=== PATIENT | female | born 1975 | race Caucasian/White ===

== ENCOUNTER 2019-10-17 11:15 | Inpatient (IN) | payer OTHER, SELFPAY ==
[2019-10-17] VITALS (14 sets, daily range): BP systolic 125–177; BP diastolic 60–96; PULSE 75–95; RESP 16–18; TEMP 36.5–37.1; O2SAT 98–100; BMI 41.9; BMI 41.5
--- NOTE | 2019-10-17 11:39 | ED.VISSUMM ---
- ER Visit Summary Date of Service: 10/17/19 Chief Complaint: Reportedly anemic requiring blood transfusion History of Present Illness: The patient is a 44 F with no past medical history. Patient states that she has had a heavy period recently. She had a blood count checked due to fatigue and had a hemoglobin of 6 and was told to come in to be transfused. She denies prior transfusions or history of anemia. She denies any melena. No hematuria. No bruising. She is on no blood thinners. Physical Examination: Middle-aged female no acute distress vital signs are stable afebrile. Initial blood pressure is 145/73. H EENT exam unremarkable. Mildly pale. Neck nontender. No lymphadenopathy. Lungs clear to auscultation. Heart regular rhythm no murmur. Abdomen soft nontender. Normal bowel sounds no peritoneal signs. Extremities moves all 4. Calves nontender without edema or cords. No bruising. Neurologically she is awake and alert with no focal motor deficits. Skin unremarkable other than pallor. Test Results: CBC shows hemoglobin of 5.9 hematocrit 22 consistent with her outpatient labs yesterday her hemoglobin was 6.0. Electrolytes normal normal creatinine and gap. Type and screen was changed over to a type and cross for 4 units. She will be transfused 2. I have the hospitalist on page for admission. Emergency Department Course and Treatment: Reportedly patient has a hemoglobin of 6 she did bring labs with her from an outside facility. Those will be rechecked and should be typed and screened. If her hemoglobin is truly sick she will need admission for transfusion and further evaluation. Treatment Plan: Repeat exam no change at 12:30 PM. Discussed test results with patient and . Have hospitalist on page for admission. Disposition: Admission Impression: Acute anemia of uncertain etiology Requiring transfusion This note was generated with [employer] dictation software. It may contain incorrect words, spelling, and punctuation that were not noted in review of the chart prior to signing
[2019-10-17 12:08] LABS: Hematocrit 22.1 % (37-47); Hemoglobin 5.9 g/dL (12.0-15.0); Mean Corp Hgb Conc 26.7 g/dL (32-36); Mean Corpuscular Hgb 18.7 pg (27.0-32.0); Mean Corpuscular Volume 70.2 fL (81-99); Mean Platelet Vol. 9.5 fl (6.2-12.0); POSITIVE COUNT YES; Platelet Count 303 K/mm3 (150-450); RBC Distribution Width CV 18.5 % (11.6-14.6); RBC Distribution Width SD 45.6 fl (35.1-43.9); Red Blood Count 3.15 M/mm3 (4.2-5.4); Scan Indicated on CBC? Y/N YES- FLAGS NOTED; White Blood Count 5.5 K/mm3 (4.4-11.0)
[2019-10-17 12:16] LABS: Anion Gap 5 (5-15); BUN 11 mg/dL (7-18); BUN/Creat Ratio 12.9 RATIO (10-20); Chloride 107 mmol/L (98-107); Creatinine, Serum 0.85 mg/dL (0.55-1.02); EST Glomerular Filtration Rate 77 mL/min (>60); Est Glom Filt Rate - Afr Amer 93 mL/min (>60); Estimated Creatinine Clearance 79.07 ml/min; Glucose 96 mg/dL (74-106); Potassium 3.9 mmol/L (3.5-5.1); Sodium Level 139 mmol/L (136-145)
--- NOTE | 2019-10-17 12:43 | NURSING ---
DR GIFFORD FOR DR SUMMERS
--- NOTE | 2019-10-17 12:45 | EKG12_ITS ---
Test Reason : DYSRHYTHMIA Blood Pressure : / mmHG Vent. Rate : 088 BPM Atrial Rate : 088 BPM P-R Int : 184 ms QRS Dur : 090 ms QT Int : 366 ms P-R-T Axes : 037 026 022 degrees QTc Int : 442 ms Normal sinus rhythm Nonspecific ST abnormality Abnormal ECG Confirmed by CHRIS BARROS, SOPHY ([id number]), editorial cartoonist JAMIE PALENCIA ([id number]) on 10/20/2019 10:21:32 AM Referred By: Carlyn Ruffin Confirmed By:FARHAN PEREZ MD
--- NOTE | 2019-10-17 12:48 | NURSING ---
MED SURG PAINTSIL ANEMIA
--- NOTE | 2019-10-17 12:48 | PCM.HP.STD ---
Problem List (1) Severe anemia Status: Acute (2) Menorrhagia Status: Acute Qualifiers: Menorrahagia type: with regular cycle Qualified Code(s): N92.0 - Excessive and frequent menstruation with regular cycle History of Present Illness Date of Admission: 10/17/19 Chief Complaint: Fatigue, dizziness - 3 days The patient is a 44 year old F para 11, 1 stillborn, has been having frequent heavy menses in with intermittent dizziness. Patient went to a free clinic close to her home. Globin was 6. Patient was referred to the emergency department. She denied any chest pain or shortness of breath. Admits to fatigue. Denied any leg swelling. No melena or hematochezia or hematemesis. She has no date for her menses but is expecting her menses anytime. Her menses have been very heavy. Vitals on admission showed temperature of 98.4F, heart rate 75, blood pressure 142/70, respiratory is 18, SPO2 was 100% on room air. WBC count was 5.5, hemoglobin 5.9, hematocrit 22.1, MCV was 70.2, MCH 18.7, platelet count 303, BMP was unremarkable. She was typed and crossmatched in the ED. Blood transfusion started. 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 Denies: Anorexia, Chills, Fever, Night Sweats, Malaise, Weakness, Weight Change Eyes: Denies: Blurred vision, Cataracts, Conjunctivae Inflammation, Pain, Redness, Vision Change HEENT: Denies: Difficulty Hearing, Difficulty Swallowing, Head Aches, Hearing Changes, Sinus Congestion, Sinus Drainage Cardiovascular: Denies: Chest Pain, Claudication, Orthopnea, Palpitations, Paroxysmal Noc. Dyspnea Respiratory: Denies: Cough, Hemoptysis, Shortness of breath at rest, Shortness of breath upon exertion, Sputum production Gastrointestinal: Denies: Abdominal Pain, Hematemesis, Hematochezia, Nausea, Vomiting Genitourinary: Denies: Dysuria, Incontinence, Nocturia Gynecological: Reports: Excessively long or heavy periods Musculoskeletal: Denies: Joint Pain, Joint stiffness, Joint swelling, Joint Tenderness Skin: Denies: Rash, Wounds Neurological: Denies: Difficulty swallowing, Focal weakness, Numbness, Tingling Psychiatric: Denies: Anxiety, Depression, Homicidal Ideations, Suicidal Ideations Hematologic/ Lymphatic: Denies: Easy Bruising, Easy Bleeding VTE Information - Inpt Only VTE Present on Admission: No VTE Pharm Prophylaxis ordered?: Yes Patient Problems: Active and Suspected Problems Severe anemia (Acute) Menorrhagia (Acute) - Physical Exam Vitals/I&O's: Vital Signs Temp Pulse Resp BP Pulse Ox 98 F 90 18 145/73 H 98 10/17/19 11:17 10/17/19 11:17 10/17/19 11:17 10/17/19 11:17 10/17/19 11:17 Oxygen Delivery Method Room Air Weight: 117.934 kg Body Mass Index (BMI) 41.9 General: Alert, Oriented x3, Cooperative, No apparent distress, - - obese HEENT: Atraumatic, PERRLA, EOMI, Normocephalic Oral: Moist Mucosa Neck: Supple Lungs: Clear to auscultation, Normal air movement Cardiovascular: Regular rate, Regular Rhythm, Normal S1, Normal S2, No murmurs Abdomen: Bowel Sounds Present, Soft, Non Tender, Non-Distended, No Hepato-splenomegaly Extremities: No edema Skin: No rashes, No breakdown Musculoskeletal: No Tenderness to Palpation of Joints or Extremities Lymphatic: No Cervical, Supraclavicular, or Inguinal Adenopathy Neurological: Cranial nerves II-XII grossly intact, Neuro grossly intact Psych/Mental Status: Normal Affect, Appropriate Laboratory Results 10/17/19 11:51: WBC 5.5, RBC 3.15 L, Hgb 5.9 L*, Hct 22.1 L, MCV 70.2 L, MCH 18.7 L, MCHC 26.7 L, RDW Std Deviation 45.6 H, RDW Coeff of Dav 18.5 H, Plt Count 303, MPV 9.5, Differential Comment , Diff Path Review February10/17/19 11:51: Sodium 139, Potassium 3.9, Chloride 107, Carbon Dioxide 27.0, Anion Gap 5, BUN 11, Creatinine 0.85, Estim Creat Clear Calc 79.07, Est GFR (MDRD) Af Amer 93, Est GFR (MDRD) Non-Af 77, BUN/Creatinine Ratio 12.9, Glucose 96, Calcium 9.0 10/17/19 11:51: Blood Type A POSITIVE, Antibody Screen NEGATIVE 10/17/19 11:51: Crossmatch See Detail Assessment/Plan All Active Problems Severe anemia (Acute) Menorrhagia (Acute) 44-year-old female para 11 with history of menorrhagia in with complaints of intermittent dizziness and fatigue 1. Severe anemia likely secondary to menorrhagia Admitting hemoglobin is 5.9 Currently being transfused Check iron stores, reticulocyte count, stool for occult blood Will aim for 2 packed RBC transfusion Check HH post-transfusion 2. Menorrhagia, unclear etiology, para 11 Pelvic ultrasound, urine test Gynecology consult 3. DVT prophylaxis with early ambulation Code Visit Inpatient E&M: 01686 Init Hosp L3
--- NOTE | 2019-10-17 12:51 | NURSING ---
NO OLD EKGS
--- NOTE | 2019-10-17 14:23 | CASEMGMT ---
RN CM Face to Face with patient for initial transition planning/care coordination assessment. RN CM introduced self and role at [facility]. Patient lying in bed, alert and oriented, at bedside. Patient willing to participate in assessment and is able to answer all questions appropriately. Care providers, pharmacy, and demographics verified. Patient wishes to discharge home, denies need for home health at this time. Patient states she has no further needs or concerns at this time. CM to follow for discharge planning needs that may arise. PCP: [facility] Specialists: Morgan Mike Pharmacy: [facility] Insurance: [employer] Prescription Benefit: [employer] Living Will/HPOA: none LNOK: Living Arrangements: Patient lives with family in 2 story home with bed and bath on first floor. Patient independent at home. Transportation: Driving Service DME/HHC: Patient denies need for DME or HHC Disposition Plan: Patient to discharge home with family support and follow-up plans in place. Lula ORDOÑEZ, RN, CM
--- NOTE | 2019-10-17 15:23 | US_ITS ---
STUDY: ULTRASOUND OF THE FEMALE PELVIS - COMPLETE REASON FOR EXAM: Female, 44 years old. HEAVY BLEEDING LAST WEEK LMP: 09/15/2019 TECHNIQUE: Transabdominal and Transvaginal TECHNICAL QUALITY: Adequate. COMPARISON: None. FINDINGS: The uterus is anteverted and is in a midline position. The uterus measures 6.4 x 10.8 x 7.2 cm. There is a Nabothian cyst of the cervix. The endometrium measures 12 mm in thickness, and is hyperechoic. There is no demonstrated endometrial mass. There is no demonstrated myometrial mass. I.U.D. - The patient does not have an I.U.D. The right ovary is visualized. The right ovary measures 3.5 x 2.9 x 2.4 cm. There is no right ovarian cyst or ovarian mass. There is no visualized right adnexal mass or complex lesion. There is normal arterial and normal venous vascularity. The left ovary is visualized. The left ovary measures 4.8 x 4.7 x 3.9 cm. 3.5 cm corpus luteum cyst left ovary. There is no visualized left adnexal mass or complex lesion. There is normal arterial and normal venous vascularity. There is no fluid in the cul-de-sac. The pre void volume of the bladder was 663 ml. The post void volume of the bladder was ml. Polycystic ovary disease: No. US/Transvaginal Non- IMPRESSION: 3.5 cm corpus luteum cyst of the left ovary. Electronically Signed: Ashkan Dykes MD at 16:28 EST Tel , Service support ,
--- NOTE | 2019-10-17 15:23 | US_ITS ---
STUDY: ULTRASOUND OF THE FEMALE PELVIS - COMPLETE REASON FOR EXAM: Female, 44 years old. HEAVY BLEEDING LAST WEEK LMP: 09/15/2019 TECHNIQUE: Transabdominal and Transvaginal TECHNICAL QUALITY: Adequate. COMPARISON: None. FINDINGS: The uterus is anteverted and is in a midline position. The uterus measures 6.4 x 10.8 x 7.2 cm. There is a Nabothian cyst of the cervix. The endometrium measures 12 mm in thickness, and is hyperechoic. There is no demonstrated endometrial mass. There is no demonstrated myometrial mass. I.U.D. - The patient does not have an I.U.D. The right ovary is visualized. The right ovary measures 3.5 x 2.9 x 2.4 cm. There is no right ovarian cyst or ovarian mass. There is no visualized right adnexal mass or complex lesion. There is normal arterial and normal venous vascularity. The left ovary is visualized. The left ovary measures 4.8 x 4.7 x 3.9 cm. 3.5 cm corpus luteum cyst left ovary. There is no visualized left adnexal mass or complex lesion. There is normal arterial and normal venous vascularity. There is no fluid in the cul-de-sac. The pre void volume of the bladder was 663 ml. The post void volume of the bladder was ml. Polycystic ovary disease: No. US/Pelvic (Non ) IMPRESSION: 3.5 cm corpus luteum cyst of the left ovary. Electronically Signed: Ashkan Dykes MD at 16:28 EST Tel , Service support ,
[2019-10-17 16:02] LABS: Ferritin 1 ng/mL (8-252); Iron Binding Capacity,Total 445 ug/dL (250-450)
[2019-10-17 16:22] LABS: AST(SGOT) 25 U/L (15-37); Alanine Aminotransfer ALT/SGPT 41 U/L (13-56); Albumin, Serum 3.8 g/dL (3.2-5.0); Alkaline Phosphatase 65 U/L (45-117); Bilirubin, Direct 0.16 mg/dL (0.00-0.30); Globulin 3.7 g/dL (2.2-4.2); Protein, Total 7.5 g/dL (6.4-8.2)
[2019-10-17] MEDS: 0.9% Saline Lock 10 ML Syringe IV (16:23)
[2019-10-17 16:48] LABS: RET-HE 15.4 pg (30-35); Reticulocyte Count 2.95 % (0.5-1.5)
[2019-10-17 16:53] LABS: Immature Platelet Fraction 2.6 % (1.0-7.9); Platelet Count Fluorescent 330
[2019-10-17 16:57] LABS: Platelet Count 346 K/mm3 (150-450)
[2019-10-17 17:28] LABS: Thyroid Stim Hormone (TSH) 7.67 uIU/mL (0.358-3.74)
[2019-10-17 17:37] LABS: Free T3 2.2 pg/mL (2.18-3.98)
[2019-10-17 18:35] LABS: Internal QC Validated? YES +Cl - CLEAR BKGD; Pregnancy, Urine Negative Negative
--- NOTE | 2019-10-17 18:57 | DCINST_ITS ---
- Discharge Diagnoses Current Active Problems: Current Active and Chronic Problems Severe anemia (Acute) Menorrhagia (Acute) Reason(s) for Visit for Discharge Instructions: fatigue You will use the following diet at home:: Regular Your food should be the consistency of: Regular Your liquids should be the consistency of: Regular/Thin Discharge Activity: Return to Normal Activity Additional Instructions: Continue to take all your medications as prescribed. Follow-up with Dr. Rome as scheduled. Allergies/Adverse Reactions: Allergies No Known Allergies Allergy (Verified 10/17/19 11:18) Medications to take at Discharge Docusate Sodium [Colace] 100 mg PO BID PRN PRN #60 cap 10/17/19 Ferrous Sulfate 325 mg PO BID #60 tab 10/17/19 The following prescriptions were given: Docusate Sodium [Colace] 100 mg PO BID PRN PRN #60 cap PRN Reason: Constipation Prescription Printed Ferrous Sulfate 325 mg PO BID #60 tab Prescription Printed Primary Care Physician: Care Physician,No Primary [Primary Care Provider] - Please follow up with your Primary Care Physician in: within 1-2 weeks Test Results: Test results from this visit will be discussed in further detail at your follow- up appointment, if applicable. Please Follow Up With: Zahra Rome MD When: within 1-2 weeks Proposed Discharge Date: 10/17/19
--- NOTE | 2019-10-17 19:01 | DS.PCM_ITS ---
Discharge Date and Diagnosis Date of Admission: 10/17/19 Date of Discharge: 10/17/19 - Primary Discharge Diagnosis Active and Suspected Problems Severe anemia (Acute) Menorrhagia (Acute) Hospital Course and Treatment Imaging Results: 10/17/19 15:23 Transvaginal Non- [US] Urgent 10/17/19 15:23 Pelvic (Non ) [US] Stat Clinical Impression(s) from Imaging Studies Pelvis Ultrasound 10/17/19 15:23 IMPRESSION: 3.5 cm corpus luteum cyst of the left ovary. Electronically Signed: Ashkan Dykes MD at 16:28 EST Tel , Service support , Transvaginal US 10/17/19 15:23 IMPRESSION: 3.5 cm corpus luteum cyst of the left ovary. Electronically Signed: Ashkan Dykes MD at 16:28 EST Tel , Service support , Gynecology Operations: None Procedures: Blood transfusion, - - pelvic and vaginal ultrasound Summary of Care Provided: The patient is a 44 year old F with no significant past medical history, para 11, history of menorrhagia who comes in intermittent dizziness as well as fatigue ongoing for weeks. Denied any chest pain or dizziness palpitations. Admitting vitals were stable. EKG showed no acute ST change. Hemoglobin was 5.9. She admits to having had heavy menses recently. Urine test was negative. Pelvic ultrasound showed a 3.5cm luteal cyst. She was seen by gynecology for follow-up with her in the outpatient. She received 2 units of packed RBCs. Patient was discharged on oral iron as well as stool softner. TSH was elevated at 7.67, however free T4 free T3 were normal. Patient will need to follow-up with her primary care doctor and repeat this in 6 to 8 weeks. Patient appeared improved after blood transfusion and wanted to be discharged to go home for [facility] [place] with her family. Post-transfusion Hb 7.9. Subjective: See H&P Objective: See H&P - Physical Exam Vitals/I&O's: Vital Signs Temp Pulse Resp BP Pulse Ox 98.5 F 95 16 139/64 H 100 10/17/19 17:50 10/17/19 17:50 10/17/19 17:50 10/17/19 17:50 10/17/19 15:19 Oxygen Delivery Method Room Air Weight: 116.658 kg Body Mass Index (BMI) 41.5 Intake and Output for Last 24 Hours 10/15/19 10/16/19 10/17/19 23:59 23:59 23:59 Intake Total 0 / 0 Balance 0 / 0 Laboratory Results 10/17/19 11:51: WBC 5.5, RBC 3.15 L, Hgb 5.9 L*, Hct 22.1 L, MCV 70.2 L, MCH 18.7 L, MCHC 26.7 L, RDW Std Deviation 45.6 H, RDW Coeff of Dav 18.5 H, Plt Count 303, MPV 9.5, Differential Comment , Diff Path Review February10/17/19 11:51: Sodium 139, Potassium 3.9, Chloride 107, Carbon Dioxide 27.0, Anion Gap 5, BUN 11, Creatinine 0.85, Estim Creat Clear Calc 79.07, Est GFR (MDRD) Af Amer 93, Est GFR (MDRD) Non-Af 77, BUN/Creatinine Ratio 12.9, Glucose 96, Calcium 9.0 10/17/19 11:51: Blood Type A POSITIVE, Antibody Screen NEGATIVE 10/17/19 11:51: Crossmatch See Detail 10/17/19 11:51: Immature Plt Fraction 2.6, Retic Count 2.95 H, Immature Retic Fraction 29.80 H, Retic Hgb Equivalent 15.4 L 10/17/19 11:51: TIBC 445, Ferritin 1 L 10/17/19 11:51: Total Bilirubin 0.50, Direct Bilirubin 0.16, AST 25, ALT 41, Alkaline Phosphatase 65, Total Protein 7.5, Albumin 3.8, Globulin 3.7 10/17/19 11:51: TSH 7.67 H 10/17/19 11:51: Free T4 0.80, Free T3 pg/dL 2.2 10/17/19 16:15: Hgb Cancelled, Hct Cancelled 10/17/19 18:26: Urine Test Negative Current Medications Acetaminophen (Tylenol) 650 mg PO Q6H PRN PRN PRN Reason: Pain Score 1-3/Temp > 100.7 F Al Hydroxide/Mg Hydroxide (Mylanta Ii) 30 ml PO Q6H PRN PRN PRN Reason: Gastric Burning Albuterol Sulfate (Ventolin Aerosols) 2.5 mg INHALATION Q2H PRN PRN PRN Reason: Shortness of Breath/Wheezing Docusate Sodium (Colace) 100 mg PO BID PRN PRN PRN Reason: Constipation Ondansetron HCl (Zofran) 4 mg IV Q8H PRN PRN PRN Reason: NAUSEA/VOMITING Senna/Docusate Sodium (Senokot-S, Laura-Colace) 2 tablet PO BID PRN PRN PRN Reason: Constipation Sodium Chloride () 10 - 40 ml IV UD PRN PRN Reason: SALINE FLUSH Last Admin: 10/17/19 16:23 Dose: 20 ml Documented by: Discharge Diet: No Restrictions Discharge Activity: Return to Normal Activity Home Medications: Medications to take at Discharge Docusate Sodium [Colace] 100 mg PO BID PRN PRN #60 cap 10/17/19 Ferrous Sulfate 325 mg PO BID #60 tab 10/17/19 Following Prescrptions Were Given to Patient: Docusate Sodium [Colace] 100 mg PO BID PRN PRN #60 cap PRN Reason: Constipation Transmission Status: Received by [id number] Ferrous Sulfate 325 mg PO BID #60 tab Transmission Status: Received by [id number] Primary Care Physician: Care Physician,No Primary [Primary Care Provider] - Please follow up with your Primary Care Physician in: within 1-2 weeks Please Follow Up With: Zahra Rome MD When: within 1-2 weeks Disposition: Home Minutes spent on discharge:: 40 Patient Condition:: Stable Medical Necessity - Tobacco Use Smoking Status: Never smoker Tobacco Use: Non-smoker Meaningful Use Info Meaningful Use Diagnoses (Choose all that apply): None applicable Code Visit Inpatient E&M: 34566 Disch Hosp
[2019-10-17 19:44] LABS: Hematocrit 26.9 % (37-47); Hemoglobin 7.9 g/dL (12.0-15.0)
--- NOTE | 2019-10-17 22:04 | CON.PCM_ITS ---
- Consult Date of Consult: 10/17/19 PROBLEM MANAGER CONSULT 44 yo 1 0 10 female presents to [facility] ED after dx at outpatient clinic with severe anemia, Hgb 6 g/dl. CC of excessive , frequent menses in the last month. States hx of irregular cycles since of her last baby 17 months ago. She is no longer nursing. She had skipped up to 2-3 months at a time and then bled lightly off and on. She has had two very heavy periods in the last month, with heavy bleeding about every 2 wks. Relates with further questioning that she had additional testing at the free clinic and was given a medication to start taking for her thyroid. She denies any current illness. no history of bloody stool, No N/V/D. Feeling well except for fatigue. States she is currently not on her period. Past OB history. 9 Pregnancies uncomplicated. Delivered 11 babies, 10 by . 1 by C section. All but one went to term. States one 30 wk vaginal delivery of a stillborn. Her last baby delivered in April 2018, by C section for intolerance of labor. That baby was SGA but is now doing well. Past PROBLEM MANAGER History: No history of abnormal paps or STDs Menarche at age 11. NKDA Medications: none Family History Mother with hx of stroke Father with history of colon cancer, after pulmonary embolism Surgical history: C section delivery and bilateral tubal ligation in April 2018 Past Medical History: Negative No hospitalizations other than childbirth Social: No drugs, EtOH, smoking Physical Exam: 5'6 117 Kg Tempt: 98.4 degrees BP 142/70 Pulse 74 Resp rate 18 100% pulse ox on RA General: A and O, NAD Conversant Second unit of RBCs infusing. HEENT: NCAT, Sclerae anicteric Neck : supple Lungs : reg respiratory rate and rhythm. Psych: mood and affect appropriate Extremities: No clubbing, cyanosis, edema Pelvic: deferred LABS: Hgb 5.9 g/dl. Plts 303,000 WBCs 5.5 Calcium 9.0 TIBC 445 Ferritin 1 (nl 8-252) Protein 7.5 LFTs WNL. Chem 7 WNL. Pelvic ultrasound: Uterus 10.8 x 7.2 x 6.4 cm Endometrial stripe 12 mm and hyperechoic No fibroids noted, no myometrial masses R ovary 3.5 x 2.9 x 2.4 cm L ovary 4.8 x 4.7 x 3.9 cm with a 3.5 cm corpus luteum cyst. No free fluid in cul de sac A/P: 1. Menorrhagia. -- differential diagnosis reviewed with patient. Likely anovulatory bleeding. Check TSH, free T3 and free T4. -- discussed options for treatment which include: expectant management, hormonal contraception (OCP, DepoProvera, Progesterone containing IUD), D and C, Endometrial ablation. Hysterectomy if all other treatment fails or is unacceptable. R,B,A of all options reviewed. ACOG pamphlets given to read and consider further. 2. Blood loss anemia. hypochromic, microcytic, iron deficiency -- two units RBCs planned and repeat CBC. -- plan to dischg home if appropriate response of H/H to 2 units given. Plan PROBLEM MANAGER follow up appt in 1-2 wk to readdress options for treatment. - Reason for Consult Menometrorrhagia, Blood loss anemia
[2019-10-19 12:35] LABS: Pathologist Review Reviewed
== END 2019-10-17 20:16 | disposition home or self-care (01) | DRG 812 ==
LOC: ED 11:53 → MS3 12:59
PROVIDERS: Obstetrics & Gynecology; Admitting Provider Internal Medicine; Emergency Provider Emergency Medicine; Referring Provider Internal Medicine; Visit Provider Internal Medicine
DX: D50.0 Iron deficiency anemia secondary to blood loss (chronic) (principal); N92.0 Excessive and frequent menstruation with regular cycle
CPT/HCPCS: 36415; 76830; 76856; 80048; 80076; 81025; 82728; 83550; 84439; 84443; 84481; 85014; 85018; 85027; 85045; 86850; 86900; 86901; 86920; 93005; 93976; 99284; J7040; P9016; A4216

== ENCOUNTER 2019-12-10 21:38 | Emergency (ER) | payer OTHER, SELFPAY ==
[2019-12-10 21:40] VITALS: BP 150/95; PULSE 87; RESP 16; TEMP 37.1; O2SAT 99; BMI 43.7
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
--- NOTE | 2019-12-10 22:14 | ED.DCSUM_ITS ---
- ER Visit Summary Date of Service: 12/10/19 Chief Complaint: Head injury History of Present Illness: The patient is a 44 F who presents with a head injury that occurred tonight. Patient was riding in a buggy when the horse was spooked by a dog. Patient states the buggy turned on its side and she fell out. Patient hit her head. Patient denies any loss of consciousness. Patient complains of lacerations above her right eyebrow, under her right lower eyelid, and along the lateral aspect of the right nares. Patient states the bleeding is controlled. Patient admits to a mild headache. Patient denies any visual changes. Patient denies any nausea or vomiting. Physical Examination: Vital signs are stable. Patient is afebrile. Patient is in no acute distress. Cranial nerves II through XII are intact. There are no focal motor or sensory deficits noted. Skin is warm and dry. There is a 3 cm L-shaped laceration in the forehead above the right eyebrow. There is moderate gapping of the wound margins. There are no foreign bodies visualized. There is also a 2 cm linear laceration over the left lower eyelid. There is minimal gapping of the wound margins. There is no bleeding noted. There is no foreign bodies noted. There is also a 1 cm curvilinear laceration over the lateral aspect of the right nares. There is no gapping of the wound margins. There is no active bleeding noted. There is no bony crepitance or step-off noted over the bridge of the nose or in the right periorbital area. Pupils are equal, round, and reactive to light bilaterally. Extraocular muscles are intact. There is no diplopia noted. Neck is supple. Trachea is midline. There is no JVD. Heart was regular rate and rhythm. Lungs are clear and equal bilaterally. Extremities are intact. There are no other deformities or injuries noted. Test Results: CT scan of the brain was obtained. There is no acute intracranial abnormality. This was interpreted by the radiologist and reviewed by myself. Emergency Department Course and Treatment: The lacerations were cleaned and irrigated with copious amounts normal saline. The wounds were anesthetized 1% lidocaine with epinephrine. The laceration of the right forehead was closed with 8 simple interrupted #5-0 nylon sutures under sterile technique. The laceration below the right eyelid was closed with 4 simple interrupted #6-0 nylon sutures under sterile technique and the laceration along the right nares was closed with 3 simple interrupted #6-0 nylon sutures under sterile technique. Bacitracin dressings were applied. Patient tolerated procedure well. Patient was given head injury instructions. Patient was also given laceration instructions. Patient was instructed to follow-up with her primary care physician in 5 days for wound recheck and suture removal. Patient understood and was agreeable with the plan. All questions were answered. Disposition: Discharge home Impression: 1. Right forehead laceration 2. Right lower eyelid laceration 3. Right nares laceration 4. Closed head injury This note was generated with [employer] dictation software. It may contain incorrect words, spelling, and punctuation that were not noted in review of the chart prior to signing ED Disposition - Plan for ED Patient: Disposition: Home or Assisted Living Diagnosis: Laceration of forehead without complication, Facial laceration, Closed head injury Instructions: HEAD INJURY, No Wake-Up (Adult), LACERATION, Face (Suture or Tape) Referrals: Chloe Hooks MD [Primary Care Provider] - 5 Days for suture removal
[2019-12-11 00:31] VITALS: BP 140/78; PULSE 76; RESP 15; O2SAT 98
== END 2019-12-11 00:33 | disposition home or self-care (01) ==
PROVIDERS: Emergency Provider Emergency Medicine
DX: S01.81XA Laceration without foreign body of other part of head, initial encounter (principal); S01.111A Laceration without foreign body of right eyelid and periocular area, initial encounter; S01.112A Laceration without foreign body of left eyelid and periocular area, initial encounter; S01.21XA Laceration without foreign body of nose, initial encounter; V80.929A Occupant of animal-drawn vehicle injured in unspecified transport accident, initial encounter; Y93.9 Activity, unspecified; Y92.9 Unspecified place or not applicable
CPT/HCPCS: 12014; 70450; 99285; J7030